=== PATIENT | female | born 1985 | race Caucasian/White ===

== ENCOUNTER 2020-06-21 15:18 | Inpatient (IN) | payer BC ==
[2020-06-21] MEDS ORDERED: Ondansetron 4 MG/2 ML SDV IVPUSH PRN (16:29)
[2020-06-21] MEDS ORDERED: Tranexamic Acid 1,000 MG in Sodium Chloride 0.9% 100 ML IV PRN (16:29)
[2020-06-21] MEDS ORDERED: Sodium Chloride 0.9% 2.5 ML Syringe FLUSH PRN (16:29)
[2020-06-21] MEDS ORDERED: Misoprostol 25 MCG (1/4 of 100 MCG) Tab VAG PRN ×2 (16:29)
[2020-06-21] MEDS ORDERED: Carboprost Tromethamine 250 MCG/1 ML Amp IM PRN (16:29)
[2020-06-21] MEDS ORDERED: Sodium Chloride 0.9% 10 ML SDV IV PRN (16:29)
[2020-06-21] MEDS ORDERED: Methylergonovine 0.2 MG/1 ML Amp IM PRN (16:29)
[2020-06-21] MEDS ORDERED: Misoprostol 200 MCG Tab PO PRN (16:29)
[2020-06-21] MEDS ORDERED: Sodium Chloride 0.9% 10 ML Syringe FLUSH PRN (16:29)
[2020-06-21] MEDS ORDERED: Nalbuphine 10 MG/1 ML Vial IVPUSH PRN (16:29)
[2020-06-21] MEDS ORDERED: Butorphanol 1 MG/ML SDV IVPUSH PRN (16:29)
[2020-06-21] MEDS ORDERED: Lidocaine 1% 50 ML MDV INJECT PRN (16:29)
[2020-06-21] MEDS ORDERED: Terbutaline 1 MG/ML SDV SUBCUT PRN (16:29)
[2020-06-21] MEDS ORDERED: Water For Irrigation,Sterile 1,000 ML Container IRR PRN (16:29)
[2020-06-21] MEDS ORDERED: Oxytocin/0.9 % Sodium Chloride 30 UNIT/500 ML BAG IV SCH ×2 (16:30)
[2020-06-21 17:10] LABS: BLOOD UREA NITROGEN,BUN 3 mg/dL (7.0-18.0); CARBON DIOXIDE,CO2 25.4 mmol/L (21.0-32.0); CHLORIDE,CL 102 mmol/L (98-107); GLUCOSE RANDOM 93 mg/dL (74-106); POTASSIUM,K 3.1 mmol/L (3.5-5.1); SODIUM,NA 138 mmol/L (136-145)
[2020-06-21] MEDS: Lactated Ringers 1,000 ML IV SCH ×3 (17:23→21:15)
[2020-06-21] MEDS ORDERED: Bupivicaine/fentaNYL/NS 250 ML ONE (21:18)
--- NOTE | 2020-06-21 21:34 | PCM.PREANE ---
Preanesthetic Assessment - Anesthesia/Transfusion/Family Hx Anesthesia History: Prior Anesthesia Without Reaction Family History of Anesthesia Reaction: No Transfusion History: No Prior Transfusion(s) - Review of Systems General: No Symptoms Pulmonary: No Symptoms Cardiovascular: No Symptoms Gastrointestinal: No Symptoms Neurological: No Symptoms Other: Reports: None - Physical Assessment NPO Status Date: 06/21/20 NPO Status Time: 11:00 Height: 5 ft 3 in Weight: 166 lb 9.6 oz Mental Status: Alert & Oriented x3 Airway Class: Mallampati = 2 Dentition: Reports: Normal Dentition Thyro-Mental Finger Breadths: 6 Mouth Opening Finger Breadths: 3 ROM/Head Extension: Full Lungs: Clear to Auscultation, Normal Respiratory Effort Cardiovascular: Regular Rate, Regular Rhythm - Lab Values: Laboratory Last Values WBC 9.67 K/uL (4.0-11.0) 06/21/20 16:10 RBC 3.80 M/uL (4.30-5.90) L 06/21/20 16:10 Hgb 11.5 g/dL (12.0-16.0) L 06/21/20 16:10 Hct 34.3 % (36.0-46.0) L 06/21/20 16:10 MCV 90.3 fL (80.0-98.0) 06/21/20 16:10 MCH 30.3 pg (27.0-32.0) 06/21/20 16:10 MCHC 33.5 g/dL (31.0-37.0) 06/21/20 16:10 RDW Std Deviation 46.4 fl (28.0-62.0) 06/21/20 16:10 RDW Coeff of Anuj 14 % (11.0-15.0) 06/21/20 16:10 Plt Count 238 K/uL (150-400) 06/21/20 16:10 MPV 11.20 fL (7.40-12.00) 06/21/20 16:10 Nucleated RBC % 0.0 /100WBC 06/21/20 16:10 Nucleated RBCs # 0 K/uL 06/21/20 16:10 Sodium 138 mmol/L (136-145) 06/21/20 16:10 Potassium 3.1 mmol/L (3.5-5.1) L 06/21/20 16:10 Chloride 102 mmol/L (98-107) 06/21/20 16:10 Carbon Dioxide 25.4 mmol/L (21.0-32.0) 06/21/20 16:10 BUN 3 mg/dL (7.0-18.0) L 06/21/20 16:10 Creatinine 0.7 mg/dL (0.6-1.0) 06/21/20 16:10 Est Cr Clr Drug Dosing TNP 06/21/20 16:10 Estimated GFR (MDRD) > 60.0 ml/min 06/21/20 16:10 Glucose 93 mg/dL (74-106) 06/21/20 16:10 Uric Acid 4.2 mg/dL (2.6-7.2) 06/21/20 16:10 Calcium 8.9 mg/dL (8.5-10.1) 06/21/20 16:10 Total Bilirubin 0.3 mg/dL (0.2-1.0) 06/21/20 16:10 AST 18 IU/L (15-37) 06/21/20 16:10 ALT 30 IU/L (14-63) 06/21/20 16:10 Alkaline Phosphatase 121 U/L (46-116) H 06/21/20 16:10 Total Protein 6.1 g/dL (6.4-8.2) L 06/21/20 16:10 Albumin 2.6 g/dL (3.4-5.0) L 06/21/20 16:10 Globulin 3.5 g/dL (2.6-4.0) 06/21/20 16:10 Albumin/Globulin Ratio 0.7 (0.9-1.6) L 06/21/20 16:10 SARS-CoV-2 RNA (ALINE) NEGATIVE (NEGATIVE) 06/21/20 16:15 Blood Type O POSITIVE 06/21/20 16:10 Antibody Screen NEGATIVE 06/21/20 16:10 - Allergies Allergies/Adverse Reactions: Allergies Allergy/AdvReac Type Severity Reaction Status Date / Time Latex, Natural Rubber Allergy Rash Verified 05/01/20 19:12 - Blood Blood Available: Yes - Anesthesia Plan Pre-Op Medication Ordered: None - Acknowledgements Anesthesia Type Planned: Epidural Pt an Appropriate Candidate for the Planned Anesthesia: Yes Alternatives and Risks of Anesthesia Discussed w Pt/Guardian: Yes Pt/Guardian Understands and Agrees with Anesthesia Plan: Yes PreAnesthesia Questionnaire Respiratory History: Reports: Asthma 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 OB/BYN History: History of infertility treatment Other Psychiatric History: "Have had depression/anxiety in past, none now" Oncologic (Cancer) History: Reports: Hodgkin's Lymphoma Dermatologic History: Reports: Eczema - Past Surgical History Head Surgeries/Procedures: Reports: None - SUBSTANCE USE Tobacco Use Status *Q: Never Tobacco User Tobacco Use Within Last Twelve Months: No Second Hand Smoke Exposure: No Recreational Drug Use History: No - HOME MEDS Home Medications: Home Meds Albuterol [Take Home: Albuterol 18 GM, 1 INH Pack] 1 puff PO Q4HR PRN 06/21/20 [History] Cetirizine HCl [Zyrtec] 10 mg PO DAILY PRN 06/21/20 [History] Fluticasone Propionate [Flovent HFA 110 MCG] 2 puff PO BID 06/21/20 [History] Ondansetron [Ondansetron ODT] 1 tab PO Q8HR 06/21/20 [History] - CURRENT (IN HOUSE) MEDS Current Meds: Current Medications Butorphanol Tartrate (Butorphanol 1 Mg/Ml Sdv) 1 mg IVPUSH Q1H PRN PRN Reason: Pain Carboprost Tromethamine (Carboprost Tromethamine 250 Mcg/1 Ml Amp) 250 mcg IM ASDIRECTED PRN PRN Reason: Post Hemorrhage Oxytocin/Sodium Chloride (Oxytocin 30 Unit/500 Ml-Ns) 30 unit in 500 mls @ 999 mls/hr IV TITRATE JUSTYN Tranexamic Acid 1,000 mg/ (Sodium Chloride) 110 mls @ 660 mls/hr IV ONETIME PRN PRN Reason: Bleeding Oxytocin/Sodium Chloride (Oxytocin 30 Unit/500 Ml-Ns) 30 unit in 500 mls @ 2 mls/hr IV TITRATE JUSTYN; Protocol Last Titration: 06/21/20 19:15 Dose: 8 munits/min, 8 mls/hr Documented by: Lactated Ringer's (Ringers, Lactated) 1,000 mls @ 150 mls/hr IV ASDIRECTED JUSTYN Last Admin: 06/21/20 21:15 Dose: 150 mls/hr Documented by: Lidocaine HCl (Lidocaine 1% 50 Ml Mdv) 50 ml INJECT ONETIME PRN PRN Reason: Laceration repair Methylergonovine Maleate (Methylergonovine 0.2 Mg/1 Ml Amp) 0.2 mg IM ASDIRECTED PRN PRN Reason: Post Hemorrhage Misoprostol (Misoprostol 200 Mcg Tab) 200 mcg PO ONETIME PRN PRN Reason: Post Hemorrhage Nalbuphine HCl (Nalbuphine 10 Mg/1 Ml Vial) 10 mg IVPUSH Q1H PRN PRN Reason: Pain (severe 7-10) Ondansetron HCl (Ondansetron 4 Mg/2 Ml Sdv) 4 mg IVPUSH Q6H PRN PRN Reason: Nausea/Vomiting Sodium Chloride (Sodium Chloride 0.9% 10 Ml Syringe) 10 ml FLUSH ASDIRECTED PRN PRN Reason: Keep Vein Open Sodium Chloride (Sodium Chloride 0.9% 2.5 Ml Syringe) 2.5 ml FLUSH ASDIRECTED PRN PRN Reason: Keep Vein Open Sodium Chloride (Sodium Chloride 0.9% 10 Ml Sdv) 10 ml IV ASDIRECTED PRN PRN Reason: IV Use Sterile Water (Water For Irrigation,Sterile 1,000 Ml Container) 1,000 ml IRR ASDIRECTED PRN PRN Reason: delivery Terbutaline Sulfate (Terbutaline 1 Mg/Ml Sdv) 0.25 mg SUBCUT ASDIRECTED PRN PRN Reason: Tacysystole Discontinued Medications Fentanyl/Bupivacaine HCl (Fentanyl/Bupivacaine/Ns 2 Mcg-0.125% 250 Ml) Confirm Administered Dose 250 mls @ as directed .ROUTE .[facility] ONE Stop: 06/21/20 21:19
--- NOTE | 2020-06-21 21:36 | PCM48HPAN ---
Post Anesthesia Note - EVALUATION WITHIN 48HRS OF ANESTHETIC Vital Signs in Normal Range: Yes Patient Participated in Evaluation: Yes Respiratory Function Stable: Yes Airway Patent: Yes Cardiovascular Function Stable: Yes Hydration Status Stable: Yes Pain Control Satisfactory: Yes Nausea and Vomiting Control Satisfactory: Yes Mental Status Recovered: Yes
[2020-06-22] MEDS: Lactated Ringers 1,000 ML IV SCH ×4 (04:00→23:50)
[2020-06-22] MEDS ORDERED: fentaNYL 100 MCG/2 ML SDV ONE ×2 (12:29→20:04)
[2020-06-22] MEDS ORDERED: Ropivacaine HCl/PF 100 ML ONE ×2 (12:30→20:04)
[2020-06-22] MEDS ORDERED: Bupivacaine 0.25% 10 ML SDV ONE (12:32)
[2020-06-23] MEDS ORDERED: oxyCODONE 5 MG Tab PO PRN (00:38)
[2020-06-23] MEDS ORDERED: Benzocaine/Menthol 20%-0.5% Spray 78 GM Cannister TOP PRN (00:38)
[2020-06-23] MEDS ORDERED: Acetaminophen 500 MG Tab PO PRN (00:38)
[2020-06-23] MEDS ORDERED: Bisacodyl 10 MG Supp RECTAL PRN (00:38)
[2020-06-23] MEDS ORDERED: Lanolin 100% Cream 7 GM Tube TOP PRN (00:38)
[2020-06-23] MEDS ORDERED: Witch Hazel Medicated Pads 40/Jar TOP PRN (00:38)
[2020-06-23] MEDS ORDERED: Ibuprofen 400 MG Tab PO PRN (00:38)
[2020-06-23] MEDS ORDERED: Docusate Sodium 100 MG Cap PO PRN (00:38)
--- NOTE | 2020-06-23 00:46 | PCM.DEL ---
L & D Note - General Info Date of Service: 06/23/20 - Delivery Note Labor: Augmented by Oxytocin Delivery Outcome: Livebirth Delivery Method: Spontaneous Vaginal Delivery-Single Presentation: Left Occiput Anterior (HECTOR) Nuchal Cord: None Anesthesia Type: Epidural Anesthetic: Lidocaine (Xylocaine) 1% Plain Local Anesthetic Volume: 3cc Amniotic Fluid Description: Clear Episiotomy Type: Right Mediolateral Laceration: 2nd Degree Suture type: Vicryl, Other Suture size: 2-0 Placenta: Intact Cord: 3 Vessels Estimated Blood Loss: 300 Score 1 min: 3 Score 5 min: 7 Second Stage Interventions: Reports: Pushing Effectively Delivery Comments (Free Text/Narrative):: Live female delivered at 2340 , 3 and 7 Weight 3510g - General Info Date of Service: 06/23/20 - Patient Data Weight - Most Recent: 75.568 kg Med Orders - Current: Current Medications Butorphanol Tartrate (Butorphanol 1 Mg/Ml Sdv) 1 mg IVPUSH Q1H PRN PRN Reason: Pain Carboprost Tromethamine (Carboprost Tromethamine 250 Mcg/1 Ml Amp) 250 mcg IM ASDIRECTED PRN PRN Reason: Post Hemorrhage Oxytocin/Sodium Chloride (Oxytocin 30 Unit/500 Ml-Ns) 30 unit in 500 mls @ 999 mls/hr IV TITRATE JUSTYN Last Admin: 06/23/20 00:00 Dose: 500 mls/hr Documented by: Tranexamic Acid 1,000 mg/ (Sodium Chloride) 110 mls @ 660 mls/hr IV ONETIME PRN PRN Reason: Bleeding Oxytocin/Sodium Chloride (Oxytocin 30 Unit/500 Ml-Ns) 30 unit in 500 mls @ 2 mls/hr IV TITRATE [facility]; Protocol Last Titration: 06/22/20 23:42 Dose: 500 munits/min, 500 mls/hr Documented by: Lactated Ringer's (Ringers, Lactated) 1,000 mls @ 150 mls/hr IV ASDIRECTED JUSTYN Last Admin: 06/22/20 23:50 Dose: 150 mls/hr Documented by: Lidocaine HCl (Lidocaine 1% 50 Ml Mdv) 50 ml INJECT ONETIME PRN PRN Reason: Laceration repair Last Admin: 06/22/20 23:50 Dose: 50 ml Documented by: Methylergonovine Maleate (Methylergonovine 0.2 Mg/1 Ml Amp) 0.2 mg IM ASDIRECTED PRN PRN Reason: Post Hemorrhage Misoprostol (Misoprostol 200 Mcg Tab) 200 mcg PO ONETIME PRN PRN Reason: Post Hemorrhage Nalbuphine HCl (Nalbuphine 10 Mg/1 Ml Vial) 10 mg IVPUSH Q1H PRN PRN Reason: Pain (severe 7-10) Ondansetron HCl (Ondansetron 4 Mg/2 Ml Sdv) 4 mg IVPUSH Q6H PRN PRN Reason: Nausea/Vomiting Sodium Chloride (Sodium Chloride 0.9% 10 Ml Syringe) 10 ml FLUSH ASDIRECTED PRN PRN Reason: Keep Vein Open Sodium Chloride (Sodium Chloride 0.9% 2.5 Ml Syringe) 2.5 ml FLUSH ASDIRECTED PRN PRN Reason: Keep Vein Open Sodium Chloride (Sodium Chloride 0.9% 10 Ml Sdv) 10 ml IV ASDIRECTED PRN PRN Reason: IV Use Sterile Water (Water For Irrigation,Sterile 1,000 Ml Container) 1,000 ml IRR ASDIRECTED PRN PRN Reason: delivery Terbutaline Sulfate (Terbutaline 1 Mg/Ml Sdv) 0.25 mg SUBCUT ASDIRECTED PRN PRN Reason: Tacysystole Discontinued Medications Bupivacaine HCl (Bupivacaine 0.25% 10 Ml Sdv) Confirm Administered Dose 10 ml .ROUTE .[facility] ONE Stop: 06/22/20 12:33 Fentanyl (Fentanyl 100 Mcg/2 Ml Sdv) Confirm Administered Dose 100 mcg .ROUTE .[facility] ONE Stop: 06/22/20 12:30 Fentanyl (Fentanyl 100 Mcg/2 Ml Sdv) Confirm Administered Dose 100 mcg .ROUTE .[facility] ONE Stop: 06/22/20 20:05 Fentanyl/Bupivacaine HCl (Fentanyl/Bupivacaine/Ns 2 Mcg-0.125% 250 Ml) Confirm Administered Dose 250 mls @ as directed .ROUTE .[facility] ONE Stop: 06/21/20 21:19 Ropivacaine (Naropin 0.2%) Confirm Administered Dose 100 mls @ as directed .ROUTE .[facility] ONE Stop: 06/22/20 12:31 Ropivacaine (Naropin 0.2%) Confirm Administered Dose 100 mls @ as directed .ROUTE .[facility] ONE Stop: 06/22/20 20:05 - Problem List & Annotations (1) Vaginal delivery SNOMED Code(s): 176202541 Code(s): O80 - ENCOUNTER FOR FULL-TERM UNCOMPLICATED DELIVERY Status: Acute Current Visit: Yes - Problem List Review Problem List Initiated/Reviewed/Updated: No - My Orders Last 24 Hours: My Active Orders 06/23/20 00:38 Patient Status [ADT] Routine May Shower [RC] ASDIRECTED Up ad Tigist [RC] ASDIRECTED Vital Signs [RC] PER UNIT ROUTINE BLOOD GAS ARTERIAL UMBILICAL [BG] Stat Acetaminophen [Tylenol Extra Strength] 1,000 mg PO Q4H PRN Acetaminophen [Tylenol Extra Strength] 500 mg PO Q4H PRN Benzocaine/Menthol [Dermoplast Pain Relief 20%-0.5% [place]] 78 gm TOP ASDIRECTED PRN Docusate Sodium [Colace] 100 mg PO BID PRN Ibuprofen [Motrin] 400 mg PO Q4H PRN Ibuprofen [Motrin] 800 mg PO Q6H PRN Lanolin [Lansinoh HPA] See Dose Instructions TOP ASDIRECTED PRN bisacodyL [Dulcolax] 10 mg RECTAL ONETIME PRN oxyCODONE 5 mg PO Q2H PRN witch Ran [Tucks] 1 pad TOP ASDIRECTED PRN Assess Lochia [WOMSER] Per Unit Routine Assess Uterine Involution [WOMSER] Per Unit Routine Peripheral IV Discontinue [OM.PC] Routine Resuscitation Status Routine 06/24/20 05:11 HEMOGLOBIN/HEMATOCRIT,HH [HEME] Timed - Assessment Assessment:: 35yo yo @ 38w6d s/p PPD0 , GHTN Rubella Immune
[2020-06-23] MEDS: Ibuprofen 800 MG Tab PO PRN ×3 (03:31→22:36)
--- NOTE | 2020-06-23 07:27 | PCM.POSTAN ---
POST ANESTHESIA ASSESSMENT - MENTAL STATUS Mental Status: Alert, Oriented - RESPIRATORY Respiratory Status: Respiratory Rate WNL, Airway Patent, O2 Saturation Stable - CARDIOVASCULAR CV Status: Pulse Rate WNL, Blood Pressure Stable - GASTROINTESTINAL GI Status: No Symptoms - POST OP HYDRATION Hydration Status: Adequate & Stable
--- NOTE | 2020-06-23 08:37 | PCM.PNPP ---
- General Info Date of Service: 06/23/20 Subjective Update: Patient doing well. Minimal cramping and lochia. Denies preeclampsia symptoms, but has noticed an increase in ankle swelling. Functional Status: Reports: Pain Controlled, Tolerating Diet, Ambulating, Urinating - Review of Systems General: Reports: No Symptoms HEENT: Reports: No Symptoms Pulmonary: Reports: No Symptoms Cardiovascular: Reports: No Symptoms Gastrointestinal: Reports: No Symptoms Genitourinary: Reports: No Symptoms Musculoskeletal: Reports: No Symptoms Skin: Reports: No Symptoms Neurological: Reports: No Symptoms Psychiatric: Reports: No Symptoms - Patient Data Vital Signs - Most Recent: Last Vital Signs Temp 36.5 C 06/23/20 07:59 Pulse 98 06/23/20 07:59 Resp 18 06/23/20 07:59 BP 135/94 H 06/23/20 07:59 Pulse Ox 95 06/23/20 07:59 Weight - Most Recent: 75.568 kg Lab Results - Last 24 Hours: Laboratory Results - last 24 hr 06/22/20 Range/Units 23:40 Cord ABG pH 7.192 (7.18-7.38) Cord ABG Base Excess -10 (-10--2) Med Orders - Current: Current Medications Acetaminophen (Acetaminophen 500 Mg Tab) 500 mg PO Q4H PRN PRN Reason: Pain Acetaminophen (Acetaminophen 500 Mg Tab) 1,000 mg PO Q4H PRN PRN Reason: Pain Benzocaine/Menthol (Benzocaine/Menthol 20%-0.5% [place] 78 Gm Cannister) 78 gm TOP ASDIRECTED PRN PRN Reason: Perineal Comfort Measure Last Admin: 06/23/20 03:30 Dose: 78 gm Documented by: Bisacodyl (Bisacodyl 10 Mg Supp) 10 mg RECTAL ONETIME PRN PRN Reason: Constipation Butorphanol Tartrate (Butorphanol 1 Mg/Ml Sdv) 1 mg IVPUSH Q1H PRN PRN Reason: Pain Carboprost Tromethamine (Carboprost Tromethamine 250 Mcg/1 Ml Amp) 250 mcg IM ASDIRECTED PRN PRN Reason: Post Hemorrhage Docusate Sodium (Docusate Sodium 100 Mg Cap) 100 mg PO BID PRN PRN Reason: Constipation Emollient Ointment (Lanolin 100% Cream 7 Gm Tube) 0 gm TOP ASDIRECTED PRN PRN Reason: Sore Nipples Last Admin: 06/23/20 03:30 Dose: 7 gm Documented by: Oxytocin/Sodium Chloride (Oxytocin 30 Unit/500 Ml-Ns) 30 unit in 500 mls @ 999 mls/hr IV TITRATE JUSTYN Last Admin: 06/23/20 00:00 Dose: 500 mls/hr Documented by: Tranexamic Acid 1,000 mg/ (Sodium Chloride) 110 mls @ 660 mls/hr IV ONETIME PRN PRN Reason: Bleeding Oxytocin/Sodium Chloride (Oxytocin 30 Unit/500 Ml-Ns) 30 unit in 500 mls @ 2 mls/hr IV TITRATE JUSTYN; Protocol Last Titration: 06/22/20 23:42 Dose: 500 munits/min, 500 mls/hr Documented by: Lactated Ringer's (Ringers, Lactated) 1,000 mls @ 150 mls/hr IV ASDIRECTED JUSTYN Last Admin: 06/22/20 23:50 Dose: 150 mls/hr Documented by: Ibuprofen (Ibuprofen 400 Mg Tab) 400 mg PO Q4H PRN PRN Reason: Pain Ibuprofen (Ibuprofen 800 Mg Tab) 800 mg PO Q6H PRN PRN Reason: Pain Last Admin: 06/23/20 03:31 Dose: 800 mg Documented by: Lidocaine HCl (Lidocaine 1% 50 Ml Mdv) 50 ml INJECT ONETIME PRN PRN Reason: Laceration repair Last Admin: 06/22/20 23:50 Dose: 50 ml Documented by: Methylergonovine Maleate (Methylergonovine 0.2 Mg/1 Ml Amp) 0.2 mg IM ASDIRECTED PRN PRN Reason: Post Hemorrhage Misoprostol (Misoprostol 200 Mcg Tab) 200 mcg PO ONETIME PRN PRN Reason: Post Hemorrhage Nalbuphine HCl (Nalbuphine 10 Mg/1 Ml Vial) 10 mg IVPUSH Q1H PRN PRN Reason: Pain (severe 7-10) Ondansetron HCl (Ondansetron 4 Mg/2 Ml Sdv) 4 mg IVPUSH Q6H PRN PRN Reason: Nausea/Vomiting Oxycodone HCl (Oxycodone 5 Mg Tab) 5 mg PO Q2H PRN PRN Reason: Pain Sodium Chloride (Sodium Chloride 0.9% 10 Ml Syringe) 10 ml FLUSH ASDIRECTED PRN PRN Reason: Keep Vein Open Sodium Chloride (Sodium Chloride 0.9% 2.5 Ml Syringe) 2.5 ml FLUSH ASDIRECTED PRN PRN Reason: Keep Vein Open Sodium Chloride (Sodium Chloride 0.9% 10 Ml Sdv) 10 ml IV ASDIRECTED PRN PRN Reason: IV Use Sterile Water (Water For Irrigation,Sterile 1,000 Ml Container) 1,000 ml IRR ASDIRECTED PRN PRN Reason: delivery Terbutaline Sulfate (Terbutaline 1 Mg/Ml Sdv) 0.25 mg SUBCUT ASDIRECTED PRN PRN Reason: Tacysystole Witch Leonarda (Witch Leonarad Medicated Pads 40/Jar) 1 pad TOP ASDIRECTED PRN PRN Reason: comfort care Last Admin: 06/23/20 03:31 Dose: 1 pad Documented by: Discontinued Medications Bupivacaine HCl (Bupivacaine 0.25% 10 Ml Sdv) Confirm Administered Dose 10 ml .ROUTE .[facility] ONE Stop: 06/22/20 12:33 Fentanyl (Fentanyl 100 Mcg/2 Ml Sdv) Confirm Administered Dose 100 mcg .ROUTE .[facility] ONE Stop: 06/22/20 12:30 Fentanyl (Fentanyl 100 Mcg/2 Ml Sdv) Confirm Administered Dose 100 mcg .ROUTE .[facility] ONE Stop: 06/22/20 20:05 Fentanyl/Bupivacaine HCl (Fentanyl/Bupivacaine/Ns 2 Mcg-0.125% 250 Ml) Confirm Administered Dose 250 mls @ as directed .ROUTE .[facility] ONE Stop: 06/21/20 21:19 Ropivacaine (Naropin 0.2%) Confirm Administered Dose 100 mls @ as directed .ROUTE .[facility] ONE Stop: 06/22/20 12:31 Ropivacaine (Naropin 0.2%) Confirm Administered Dose 100 mls @ as directed .ROUTE .[facility] ONE Stop: 06/22/20 20:05 - Infant Interaction Infant Disposition, : in Room with Family Infant Interaction: Holding Feeding: Breastfed Infant; Nursed Well Support Person: - Recovery Exam Fundal Level: 1 Fingerbreadths Below Umbilicus Fundal Placement: Midline Lochia Amount: Small Lochia Color: Rubra/Red Bladder Status: Voiding Urinary Elimination: Voided - Exam General: Alert, Oriented Neck: Supple Lungs: Normal Respiratory Effort GI/Abdominal Exam: Soft, Non-Tender, No Distention Extremities: Pedal Edema (1+) Skin: Warm, Dry, Intact Neurological: No New Focal Deficit Psy/Mental Status: Alert, Normal Affect, Normal Mood - Problem List & Annotations (1) Gestational hypertension SNOMED Code(s): 234262753 Code(s): O13.9 - GESTATIONAL HTN W/O SIGNIFICANT PROTEINURIA, UNSP TRIMESTER Status: Acute Current Visit: Yes (2) Vaginal delivery SNOMED Code(s): 966481565 Code(s): O80 - ENCOUNTER FOR FULL-TERM UNCOMPLICATED DELIVERY Status: Acute Current Visit: Yes - Problem List Review Problem List Initiated/Reviewed/Updated: Yes - Assessment Assessment:: 35yo yo @ 38w6d s/p , PPD1 - Plan Plan:: 1. : Routine care. Discussed fluid shifts after delivery, encouraged hydration today and elevating legs when in bed. 2. GHTN: Monitor BP . Has 1 week BP check scheduled in clinic. 3. Dispo: Stay today to monitor BP. Likely discharge home tomorrow.
--- NOTE | 2020-06-23 11:03 | OR ---
SURGEON: SNOW BUI DATE OF PROCEDURE: 06/23/2020 PREOPERATIVE DIAGNOSIS: A 35-year-old G1, P0, at 38 weeks 6 days, admitted for induction of labor secondary to gestational hypertension. POSTOPERATIVE DIAGNOSIS: A 35-year-old G1, P0, at 38 weeks 6 days, admitted for induction of labor secondary to gestational hypertension. PROCEDURES: Normal spontaneous vaginal delivery and repair of right mediolateral episiotomy ESTIMATED BLOOD LOSS: 300. INTRAVENOUS FLUID: Pitocin running. ANESTHESIA: Epidural in addition to 1% lidocaine for repair of right mediolateral episiotomy. NOTES AND FINDINGS: A live female delivered at 2340. score is 3 and 7. Weight is 3510 g. There was right mediolateral episiotomy that was repaired in layers. BRIEF HISTORY ABOUT THE PATIENT: She is a 35-year-old G1, P0, at 38 weeks 6 days, who was admitted for induction of labor secondary to gestational hypertension. I took over care from Dr. Salinas. When she was admitted, she was about 2 cm dilated. She received Pitocin for about 12 hours and she was unchanged, so Pitocin was halted and restarted again. I evaluated the patient in the morning. She was about 3 cm dilated. AROM was done. Clear fluid was noted. IUPC was placed in to monitor contractions. At this point, Pitocin was about 12 milliunits. Tracing was category 1. monitoring was noted to be normal, was category 1. The blood pressure was normal. The patient then made progress and was re-evaluated again about 4 hours later, she was about 6 to 7 cm. Then, the patient became fully dilated thereafter. With the patient being fully dilated, she was encouraged to push. Initially, head was in OP position self rotated to OA during pushing movement. Once the patient was fully dilated, she pushed, and with good pushing effort, she delivered the head followed subsequently by the anterior and posterior shoulder. The was placed on maternal abdomen, but due to tone, cord was immediately cut and clamped and handed over to the awaiting nursery nurse. The placenta was then attempted to be delivered, was delivered via manual massage of the uterine fundus via controlled cord traction. The cord blood gases were obtained after about 15 minutes due to assisting with resuscitation of the baby. The perineum was inspected. The RML was noted and was repaired in layers with 0 Vicryl. The patient tolerated the procedure well. All instrument and pad counts were correct x2. LEVY / JOSE G /[id number] MTDD
--- NOTE | 2020-06-23 14:19 | PCM.SN.2 ---
- Free Text/Narrative Note: Clarification of epidural Placement time spent. Epidural preparation and placement from 2104 to 2204 on 06/21/2020. Please see anesthesia record for description.
[2020-06-23] MEDS: Acetaminophen 500 MG Tab PO PRN (15:20)
[2020-06-24] MEDS: Acetaminophen 500 MG Tab PO PRN (07:52)
--- NOTE | 2020-06-24 08:18 | PCM.PNPP ---
- General Info Date of Service: 06/24/20 Subjective Update: Patient doing well. Denies preeclampsia symptoms. Minimal lochia and cramping. Working on . Functional Status: Reports: Pain Controlled, Tolerating Diet, Ambulating, Urinating - Review of Systems General: Reports: No Symptoms HEENT: Reports: No Symptoms Pulmonary: Reports: No Symptoms Cardiovascular: Reports: No Symptoms Gastrointestinal: Reports: No Symptoms Genitourinary: Reports: No Symptoms Musculoskeletal: Reports: No Symptoms Skin: Reports: No Symptoms Neurological: Reports: No Symptoms Psychiatric: Reports: No Symptoms - Patient Data Vital Signs - Most Recent: Last Vital Signs Temp 36.3 C 06/23/20 19:38 Pulse 88 06/23/20 19:38 Resp 18 06/23/20 19:38 BP 140/84 06/23/20 19:38 Pulse Ox 98 06/23/20 19:38 Weight - Most Recent: 75.568 kg Lab Results - Last 24 Hours: Laboratory Results - last 24 hr 06/24/20 Range/Units 05:32 Hgb 9.6 L (12.0-16.0) g/dL Hct 29.3 L (36.0-46.0) % Med Orders - Current: Current Medications Acetaminophen (Acetaminophen 500 Mg Tab) 500 mg PO Q4H PRN PRN Reason: Pain Acetaminophen (Acetaminophen 500 Mg Tab) 1,000 mg PO Q4H PRN PRN Reason: Pain Last Admin: 06/24/20 07:52 Dose: 1,000 mg Documented by: Benzocaine/Menthol (Benzocaine/Menthol 20%-0.5% [place] 78 Gm Cannister) 78 gm TOP ASDIRECTED PRN PRN Reason: Perineal Comfort Measure Last Admin: 06/23/20 03:30 Dose: 78 gm Documented by: Bisacodyl (Bisacodyl 10 Mg Supp) 10 mg RECTAL ONETIME PRN PRN Reason: Constipation Butorphanol Tartrate (Butorphanol 1 Mg/Ml Sdv) 1 mg IVPUSH Q1H PRN PRN Reason: Pain Carboprost Tromethamine (Carboprost Tromethamine 250 Mcg/1 Ml Amp) 250 mcg IM ASDIRECTED PRN PRN Reason: Post Hemorrhage Docusate Sodium (Docusate Sodium 100 Mg Cap) 100 mg PO BID PRN PRN Reason: Constipation Emollient Ointment (Lanolin 100% Cream 7 Gm Tube) 0 gm TOP ASDIRECTED PRN PRN Reason: Sore Nipples Last Admin: 06/23/20 03:30 Dose: 7 gm Documented by: Oxytocin/Sodium Chloride (Oxytocin 30 Unit/500 Ml-Ns) 30 unit in 500 mls @ 999 mls/hr IV TITRATE JUSTYN Last Admin: 06/23/20 00:00 Dose: 500 mls/hr Documented by: Tranexamic Acid 1,000 mg/ (Sodium Chloride) 110 mls @ 660 mls/hr IV ONETIME PRN PRN Reason: Bleeding Oxytocin/Sodium Chloride (Oxytocin 30 Unit/500 Ml-Ns) 30 unit in 500 mls @ 2 mls/hr IV TITRATE [facility]; Protocol Last Titration: 06/22/20 23:42 Dose: 500 munits/min, 500 mls/hr Documented by: Lactated Ringer's (Ringers, Lactated) 1,000 mls @ 150 mls/hr IV ASDIRECTED [facility] Last Admin: 06/22/20 23:50 Dose: 150 mls/hr Documented by: Ibuprofen (Ibuprofen 400 Mg Tab) 400 mg PO Q4H PRN PRN Reason: Pain Ibuprofen (Ibuprofen 800 Mg Tab) 800 mg PO Q6H PRN PRN Reason: Pain Last Admin: 06/23/20 22:36 Dose: 800 mg Documented by: Lidocaine HCl (Lidocaine 1% 50 Ml Mdv) 50 ml INJECT ONETIME PRN PRN Reason: Laceration repair Last Admin: 06/22/20 23:50 Dose: 50 ml Documented by: Methylergonovine Maleate (Methylergonovine 0.2 Mg/1 Ml Amp) 0.2 mg IM ASDIRECTED PRN PRN Reason: Post Hemorrhage Misoprostol (Misoprostol 200 Mcg Tab) 200 mcg PO ONETIME PRN PRN Reason: Post Hemorrhage Nalbuphine HCl (Nalbuphine 10 Mg/1 Ml Vial) 10 mg IVPUSH Q1H PRN PRN Reason: Pain (severe 7-10) Ondansetron HCl (Ondansetron 4 Mg/2 Ml Sdv) 4 mg IVPUSH Q6H PRN PRN Reason: Nausea/Vomiting Oxycodone HCl (Oxycodone 5 Mg Tab) 5 mg PO Q2H PRN PRN Reason: Pain Sodium Chloride (Sodium Chloride 0.9% 10 Ml Syringe) 10 ml FLUSH ASDIRECTED PRN PRN Reason: Keep Vein Open Sodium Chloride (Sodium Chloride 0.9% 2.5 Ml Syringe) 2.5 ml FLUSH ASDIRECTED PRN PRN Reason: Keep Vein Open Sodium Chloride (Sodium Chloride 0.9% 10 Ml Sdv) 10 ml IV ASDIRECTED PRN PRN Reason: IV Use Sterile Water (Water For Irrigation,Sterile 1,000 Ml Container) 1,000 ml IRR ASDIRECTED PRN PRN Reason: delivery Terbutaline Sulfate (Terbutaline 1 Mg/Ml Sdv) 0.25 mg SUBCUT ASDIRECTED PRN PRN Reason: Tacysystole Witch Leonarda (Witch Leonarda Medicated Pads 40/Jar) 1 pad TOP ASDIRECTED PRN PRN Reason: comfort care Last Admin: 06/23/20 03:31 Dose: 1 pad Documented by: Discontinued Medications Bupivacaine HCl (Bupivacaine 0.25% 10 Ml Sdv) Confirm Administered Dose 10 ml .ROUTE .[facility]-MED ONE Stop: 06/22/20 12:33 Last Admin: 06/23/20 22:40 Dose: Not Given Documented by: Fentanyl (Fentanyl 100 Mcg/2 Ml Sdv) Confirm Administered Dose 100 mcg .ROUTE .[employer]MED ONE Stop: 06/22/20 12:30 Last Admin: 06/23/20 22:41 Dose: Not Given Documented by: Fentanyl (Fentanyl 100 Mcg/2 Ml Sdv) Confirm Administered Dose 100 mcg .ROUTE .[employer]MED ONE Stop: 06/22/20 20:05 Last Admin: 06/23/20 22:40 Dose: Not Given Documented by: Fentanyl/Bupivacaine HCl (Fentanyl/Bupivacaine/Ns 2 Mcg-0.125% 250 Ml) Confirm Administered Dose 250 mls @ as directed .ROUTE .[employer]-MED ONE Stop: 06/21/20 21:19 Ropivacaine (Naropin 0.2%) Confirm Administered Dose 100 mls @ as directed .ROUTE .[employer]MED ONE Stop: 06/22/20 12:31 Last Admin: 06/23/20 22:40 Dose: Not Given Documented by: Ropivacaine (Naropin 0.2%) Confirm Administered Dose 100 mls @ as directed .ROUTE .[employer]MED ONE Stop: 06/22/20 20:05 Last Admin: 06/23/20 22:40 Dose: Not Given Documented by: - Interaction Disposition, : [place] in Room with Family Feeding: Attempted ; Nursed Fair/Poor, Continues to Breastfeed Support Person: - Recovery Exam Fundal Tone: Firm Fundal Level: At Umbilicus Fundal Placement: Midline Lochia Amount: Scant Lochia Color: Rubra/Red Bladder Status: Voiding Urinary Elimination: Voided - Exam General: Alert, Oriented Neck: Supple Lungs: Normal Respiratory Effort GI/Abdominal Exam: Soft, Non-Tender, No Distention Extremities: Non-Tender, Pedal Edema (1+) Skin: Warm, Dry, Intact Neurological: No New Focal Deficit Psy/Mental Status: Alert, Normal Affect, Normal Mood - Problem List & Annotations (1) Gestational hypertension SNOMED Code(s): 753342303 Code(s): O13.9 - GESTATIONAL HTN W/O SIGNIFICANT PROTEINURIA, UNSP TRIMESTER Status: Acute Current Visit: Yes (2) Vaginal delivery SNOMED Code(s): 961619851 Code(s): O80 - ENCOUNTER FOR FULL-TERM UNCOMPLICATED DELIVERY Status: Acute Current Visit: Yes - Problem List Review Problem List Initiated/Reviewed/Updated: Yes - My Orders Last 24 Hours: My Active Orders 06/24/20 08:10 Ready for Discharge [RC] PER UNIT ROUTINE - Assessment Assessment:: 35yo yo @ 38w6d s/p , PPD2 - Plan Plan:: 1. : Routine care. Discussed fluid shifts after delivery, encouraged hydration today and elevating legs when in bed. 2. GHTN: Continue to monitor BP, mild range since delivery. Has 1 week BP check scheduled in clinic. 3. Dispo: Discharge home today. BP check in clinic in 1 week. Reviewed and preeclampsia precautions. All questions answered.
--- NOTE | 2020-06-24 13:34 | PCM48HPAN ---
Post Anesthesia Note - EVALUATION WITHIN 48HRS OF ANESTHETIC Patient Participated in Evaluation: Yes Respiratory Function Stable: Yes Airway Patent: Yes Cardiovascular Function Stable: Yes Hydration Status Stable: Yes Pain Control Satisfactory: Yes Nausea and Vomiting Control Satisfactory: Yes Mental Status Recovered: Yes Vital Signs: Last Vital Signs Temp 98.2 F 06/24/20 12:06 Pulse 87 06/24/20 12:06 Resp 16 06/24/20 12:06 BP 135/89 06/24/20 12:06 Pulse Ox 98 06/24/20 12:06 - COMMENTS/OBSERVATIONS Free Text/Narrative:: LE worked well. Full return of sensation and motor
[2020-06-24] MEDS: Ibuprofen 800 MG Tab PO PRN (15:44)
== END 2020-06-24 18:12 | disposition home or self-care (01) | DRG 560 ==
LOC: MW.OBCHECK 15:18 → MW.OB 16:30 → OBSVTOIN 06-23 00:38 → MW.OB 06-23 06:01
PROVIDERS: ADMIT Obstetrics & Gynecology; ATTEND Obstetrics & Gynecology
PROC: 10E0XZZ Delivery of Products of Conception, External Approach (ICD-10-PCS; principal; 2020-06-23)
PROC: 3E0R3BZ Introduction of Anesthetic Agent into Spinal Canal, Percutaneous Approach (ICD-10-PCS; 2020-06-23)
PROC: 10907ZC Drainage of Amniotic Fluid, Therapeutic from Products of Conception, Via Natural or Artificial Opening (ICD-10-PCS; 2020-06-23)
PROC: 0W8NXZZ Division of Female Perineum, External Approach (ICD-10-PCS; 2020-06-23)
PROC: 4A1HXCZ Monitoring of Products of Conception, Cardiac Rate, External Approach (ICD-10-PCS; 2020-06-23)
PROC: 10H07YZ Insertion of Other Device into Products of Conception, Via Natural or Artificial Opening (ICD-10-PCS; 2020-06-23)
DX: O13.4 Gestational [pregnancy-induced] hypertension without significant proteinuria, complicating childbirth (principal); Z3A.38 38 weeks gestation of pregnancy; Z37.0 Single live birth; O76 Abnormality in fetal heart rate and rhythm complicating labor and delivery; Z20.822 Contact with and (suspected) exposure to COVID-19
CPT/HCPCS: 36415; 51702; 59025; 59409; 80053; 82803; 84550; 85014; 85018; 85027; 86592; 86850; 86900; 86901; A9270-GY; J2001; J2590; J2795; J3010; J3490; J7120; U0002

== ENCOUNTER 2020-06-30 14:52 | Inpatient (IN) | payer BC ==
[2020-06-30] MEDS ORDERED: Sodium Chloride 0.9% 10 ML SDV IV PRN (15:13)
[2020-06-30] MEDS ORDERED: Sodium Chloride 0.9% 10 ML Syringe FLUSH PRN (15:13)
[2020-06-30] MEDS ORDERED: Magnesium Sulfate/Water 4 GM in Premix Bag 1 BAG IV ONE (15:13)
[2020-06-30] MEDS ORDERED: Sodium Chloride 0.9% 2.5 ML Syringe FLUSH PRN (15:13)
[2020-06-30] MEDS ORDERED: Calcium Gluconate 10% 1 GM/10 ML SDV IV PRN (15:13)
[2020-06-30] MEDS ORDERED: NIFEdipine 30 MG Tab.ER PO ONE (15:50)
[2020-06-30] MEDS ORDERED: Lactated Ringers 1,000 ML IV SCH (16:30)
--- NOTE | 2020-06-30 16:53 | PCM.PN ---
- General Info Date of Service: 06/30/20 Subjective Update: Resting in bed with . Reports headache 10/01, was previously 610 in severity at [facility]. Denies visual changes, shortness of air, chest pain, nausea/vomiting or RUQ pain. - Patient Data Vitals - Most Recent: Last Vital Signs Temp 98.3 F 06/30/20 15:29 Pulse 76 06/30/20 15:29 Resp 16 06/30/20 15:29 BP 164/96 H 06/30/20 15:29 Pulse Ox 99 06/30/20 15:29 Weight - Most Recent: 149 lb 14.4 oz Med Orders - Current: Current Medications Calcium Gluconate (Calcium Gluconate 10% 1 Gm/10 Ml Sdv) 1 gm IV ASDIRECTED PRN PRN Reason: respiratory distress Magnesium Sulfate (Magnesium Sulfate In Water 20 Gm/500 Ml) 20 gm in 500 mls @ 50 mls/hr IV ASDIRECTED JUSTYN Lactated Ringer's (Ringers, Lactated) 1,000 mls @ 50 mls/hr IV ASDIRECTED JUSTYN Sodium Chloride (Sodium Chloride 0.9% 10 Ml Syringe) 10 ml FLUSH ASDIRECTED PRN PRN Reason: Keep Vein Open Sodium Chloride (Sodium Chloride 0.9% 2.5 Ml Syringe) 2.5 ml FLUSH ASDIRECTED PRN PRN Reason: Keep Vein Open Sodium Chloride (Sodium Chloride 0.9% 10 Ml Sdv) 10 ml IV ASDIRECTED PRN PRN Reason: IV Use Discontinued Medications Magnesium Sulfate 4 gm/ Premix 100 mls @ 300 mls/hr IV BOLUS ONE Stop: 06/30/20 15:32 Nifedipine (Nifedipine 30 Mg Tab.Er) 60 mg PO DAILY ONE Stop: 06/30/20 15:51 - Exam General: Alert Lungs: Clear to Auscultation, Normal Respiratory Effort Cardiovascular: Regular Rate, Regular Rhythm GI/Abdominal Exam: Soft, Non-Tender Back Exam: Normal Inspection, Full Range of Motion Extremities: Normal Inspection, Normal Range of Motion, Non-Tender, No Pedal Edema Skin: Warm, Dry, Intact Neurological: No New Focal Deficit Psy/Mental Status: Normal Mood Sepsis Event Note - Focused Exam Vital Signs: Vital Signs Temp Pulse Resp BP Pulse Ox 06/30/20 15:29 98.3 F 76 16 164/96 H 99 - Problem List Review Problem List Initiated/Reviewed/Updated: Yes - My Orders Last 24 Hours: My Active Orders 06/30/20 TYPE AND SCREEN [BBK] Routine 06/30/20 15:13 Patient Status [ADT] Routine Bedrest [RC] ASDIRECTED Communication Order [RC] PRN Communication Order [RC] PRN Height and Weight [RC] DAILY Intake and Output [RC] QSHIFT Notify Provider [RC] PRN Oxygen Therapy [RC] PRN Vital Signs [RC] ASDIRECTED Calcium Gluconate 1 gm IV ASDIRECTED PRN Sodium Chloride 0.9% [Normal Saline] 10 ml IV ASDIRECTED PRN Sodium Chloride 0.9% [Saline Flush] 10 ml FLUSH ASDIRECTED PRN Sodium Chloride 0.9% [Saline Flush] 2.5 ml FLUSH ASDIRECTED PRN Electronic Heart Tones Ext w TOCO [WOMSER] Per Unit Routine Peripheral IV Insertion Adult [OM.PC] Routine 06/30/20 15:14 Equipment to Bedside [RC] PRN Heart Tones [RC] ASDIRECTED 06/30/20 15:15 Notify Provider Status Change [RC] ASDIRECTED Magnesium Sulfate/Water [Magnesium Sulfate in Water 20 GM/500 ML] 20 gm in 500 ml IV ASDIRECTED Deep Tendon Reflexes [WOMSER] Q1H 06/30/20 15:29 CORONAVIRUS COVID-19 ALINE [MOLEC] Routine 06/30/20 16:15 Deep Tendon Reflexes [WOMSER] Q1H 06/30/20 16:30 Lactated Ringers [Ringers, Lactated] 1,000 ml IV ASDIRECTED 06/30/20 17:15 Deep Tendon Reflexes [WOMSER] Q1H 06/30/20 18:15 Deep Tendon Reflexes [WOMSER] Q1H 06/30/20 19:15 Deep Tendon Reflexes [WOMSER] Q1H 06/30/20 20:15 Deep Tendon Reflexes [WOMSER] Q1H 06/30/20 21:15 Deep Tendon Reflexes [WOMSER] Q1H 06/30/20 22:15 Deep Tendon Reflexes [WOMSER] Q1H 06/30/20 23:15 Deep Tendon Reflexes [WOMSER] Q1H 07/01/20 00:15 Deep Tendon Reflexes [WOMSER] Q1H 07/01/20 01:15 Deep Tendon Reflexes [WOMSER] Q1H 07/01/20 02:15 Deep Tendon Reflexes [WOMSER] Q1H 07/01/20 03:15 Deep Tendon Reflexes [WOMSER] Q1H 07/01/20 04:15 Deep Tendon Reflexes [WOMSER] Q1H 07/01/20 05:15 Deep Tendon Reflexes [WOMSER] Q1H 07/01/20 06:15 Deep Tendon Reflexes [WOMSER] Q1H 07/01/20 07:15 Deep Tendon Reflexes [WOMSER] Q1H 07/01/20 08:15 Deep Tendon Reflexes [WOMSER] Q1H 07/01/20 09:15 Deep Tendon Reflexes [WOMSER] Q1H 07/01/20 10:15 Deep Tendon Reflexes [WOMSER] Q1H 07/01/20 11:15 Deep Tendon Reflexes [WOMSER] Q1H 07/01/20 12:15 Deep Tendon Reflexes [WOMSER] Q1H 07/01/20 13:15 Deep Tendon Reflexes [WOMSER] Q1H 07/01/20 14:15 Deep Tendon Reflexes [WOMSER] Q1H - Assessment Assessment:: 35 year old s/p on 06/22/2020 with severe preeclampsia - Plan Plan:: Preeclampsia with severe features * Diagnosed with severe range blood pressures and headache * Preeclampsia labs obtained at clinic today within normal limits * Admitted to L&D for magnesium for seizure prophylaxis * Valle catheter ordered for strict monitoring of intake and output * PO Procardia 60mg given at 1630 * IV Hydralazine to Labetalol protocol as needed * PO Tylenol and Ibuprofen ordered for headache/abdominal pain PRN * Will repeat preeclampsia labs in the morning
[2020-06-30] MEDS: Magnesium Sulfate/Water 20 GM/500 ML BAG IV SCH (17:12)
[2020-06-30] MEDS ORDERED: Ibuprofen 800 MG Tab PO PRN (17:37)
[2020-06-30] MEDS: Ibuprofen 600 MG Tab PO PRN (17:54)
[2020-06-30] MEDS: Acetaminophen 500 MG Tab PO PRN (19:43)
[2020-07-01] MEDS: Magnesium Sulfate/Water 20 GM/500 ML BAG IV SCH (03:22)
[2020-07-01 03:46] LABS: BLOOD UREA NITROGEN,BUN 6 mg/dL (7.0-18.0); CARBON DIOXIDE,CO2 27.2 mmol/L (21.0-32.0); CHLORIDE,CL 105 mmol/L (98-107); GLUCOSE RANDOM 97 mg/dL (74-106); SODIUM,NA 141 mmol/L (136-145)
[2020-07-01] MEDS: Ibuprofen 600 MG Tab PO PRN ×2 (06:07→15:23)
[2020-07-01] MEDS: Acetaminophen 500 MG Tab PO PRN ×2 (07:21→22:04)
--- NOTE | 2020-07-01 07:51 | PCM.PN ---
- General Info Date of Service: 07/01/20 Subjective Update: Resting in bed with infant. Reports headache resolved with Tylenol and Ibuprofen overnight. Denies visual changes, shortness of air, chest pain, nausea/vomiting or RUQ pain. - Patient Data Vitals - Most Recent: Last Vital Signs Temp 97 F 07/01/20 07:00 Pulse 83 07/01/20 07:00 Resp 18 07/01/20 07:00 BP 133/91 H 07/01/20 07:00 Pulse Ox 95 07/01/20 07:00 Weight - Most Recent: 149 lb 14.4 oz I&O - Last 24 Hours: Intake & Output 06/30/20 07/01/20 07/01/20 22:59 06:59 14:59 Intake Total 525 Output Total 350 2250 Balance -350 -1725 Lab Results Last 24 Hours: Laboratory Results - last 24 hr 06/30/20 06/30/20 06/30/20 Range/Units 15:29 16:36 21:12 WBC (4.0-11.0) K/uL RBC (4.30-5.90) M/uL Hgb (12.0-16.0) g/dL Hct (36.0-46.0) % MCV (80.0-98.0) fL MCH (27.0-32.0) pg MCHC (31.0-37.0) g/dL RDW Std Deviation (28.0-62.0) fl RDW Coeff of Anuj (11.0-15.0) % Plt Count (150-400) K/uL MPV (7.40-12.00) fL Nucleated RBC % /100WBC Nucleated RBCs # K/uL Sodium (136-145) mmol/L Potassium (3.5-5.1) mmol/L Chloride (98-107) mmol/L Carbon Dioxide (21.0-32.0) mmol/L BUN (7.0-18.0) mg/dL Creatinine (0.6-1.0) mg/dL Est Cr Clr Drug Dosing mL/min Estimated GFR (MDRD) ml/min Glucose (74-106) mg/dL Calcium (8.5-10.1) mg/dL Magnesium 5.8 H (1.8-2.4) mg/dL Total Bilirubin (0.2-1.0) mg/dL AST (15-37) IU/L ALT (14-63) IU/L Alkaline Phosphatase (46-116) U/L Total Protein (6.4-8.2) g/dL Albumin (3.4-5.0) g/dL Globulin (2.6-4.0) g/dL Albumin/Globulin Ratio (0.9-1.6) SARS-CoV-2 RNA (ALINE) NEGATIVE (NEGATIVE) Blood Type O POSITIVE Antibody Screen NEGATIVE 07/01/20 07/01/20 07/01/20 Range/Units 03:15 03:15 03:15 WBC 7.86 (4.0-11.0) K/uL RBC 3.90 L (4.30-5.90) M/uL Hgb 11.8 L (12.0-16.0) g/dL Hct 35.6 L (36.0-46.0) % MCV 91.3 (80.0-98.0) fL MCH 30.3 (27.0-32.0) pg MCHC 33.1 (31.0-37.0) g/dL RDW Std Deviation 47.9 (28.0-62.0) fl RDW Coeff of Anuj 14 (11.0-15.0) % Plt Count 460 H (150-400) K/uL MPV 9.50 (7.40-12.00) fL Nucleated RBC % 0.0 /100WBC Nucleated RBCs # 0 K/uL Sodium 141 (136-145) mmol/L Potassium 3.0 L (3.5-5.1) mmol/L Chloride 105 (98-107) mmol/L Carbon Dioxide 27.2 (21.0-32.0) mmol/L BUN 6 L (7.0-18.0) mg/dL Creatinine 0.8 (0.6-1.0) mg/dL Est Cr Clr Drug Dosing 81.97 mL/min Estimated GFR (MDRD) > 60.0 ml/min Glucose 97 (74-106) mg/dL Calcium 6.1 L (8.5-10.1) mg/dL Magnesium 7.4 H (1.8-2.4) mg/dL Total Bilirubin 0.3 (0.2-1.0) mg/dL AST 14 L (15-37) IU/L ALT 35 (14-63) IU/L Alkaline Phosphatase 109 (46-116) U/L Total Protein 6.8 (6.4-8.2) g/dL Albumin 2.8 L (3.4-5.0) g/dL Globulin 4.0 (2.6-4.0) g/dL Albumin/Globulin Ratio 0.7 L (0.9-1.6) SARS-CoV-2 RNA (ALINE) (NEGATIVE) Blood Type Antibody Screen Med Orders - Current: Current Medications Acetaminophen (Acetaminophen 500 Mg Tab) 1,000 mg PO Q6H PRN PRN Reason: Headache Last Admin: 07/01/20 07:21 Dose: 1,000 mg Documented by: Calcium Gluconate (Calcium Gluconate 10% 1 Gm/10 Ml Sdv) 1 gm IV ASDIRECTED PRN PRN Reason: respiratory distress Magnesium Sulfate (Magnesium Sulfate In Water 20 Gm/500 Ml) 20 gm in 500 mls @ 25 mls/hr IV ASDIRECTED JUSTYN Last Infusion: 07/01/20 03:50 Dose: 1 gm/hr, 25 mls/hr Documented by: Lactated Ringer's (Ringers, Lactated) 1,000 mls @ 50 mls/hr IV ASDIRECTED JUSTYN Last Admin: 06/30/20 16:25 Dose: 3 mls/hr Documented by: Ibuprofen (Ibuprofen 600 Mg Tab) 600 mg PO Q8H PRN PRN Reason: Headache Last Admin: 07/01/20 06:07 Dose: 600 mg Documented by: Sodium Chloride (Sodium Chloride 0.9% 10 Ml Syringe) 10 ml FLUSH ASDIRECTED PRN PRN Reason: Keep Vein Open Sodium Chloride (Sodium Chloride 0.9% 2.5 Ml Syringe) 2.5 ml FLUSH ASDIRECTED PRN PRN Reason: Keep Vein Open Sodium Chloride (Sodium Chloride 0.9% 10 Ml Sdv) 10 ml IV ASDIRECTED PRN PRN Reason: IV Use Discontinued Medications Magnesium Sulfate 4 gm/ Premix 100 mls @ 300 mls/hr IV BOLUS ONE Stop: 06/30/20 15:32 Last Admin: 06/30/20 16:39 Dose: 300 mls/hr Documented by: Ibuprofen (Ibuprofen 800 Mg Tab) 600 mg PO Q8H PRN PRN Reason: Headache Nifedipine (Nifedipine 30 Mg Tab.Er) 60 mg PO DAILY ONE Stop: 06/30/20 15:51 Last Admin: 06/30/20 16:30 Dose: 60 mg Documented by: - Exam General: Alert Lungs: Clear to Auscultation, Normal Respiratory Effort Cardiovascular: Regular Rate, Regular Rhythm GI/Abdominal Exam: Soft, Non-Tender, No Distention Back Exam: Normal Inspection, Full Range of Motion Extremities: Normal Inspection, Normal Range of Motion, Non-Tender, No Pedal Edema Skin: Warm, Dry, Intact Neurological: No New Focal Deficit Psy/Mental Status: Normal Mood - Patient Data Lab Results Last 24 hrs: Laboratory Results - last 24 hr 06/30/20 06/30/20 06/30/20 Range/Units 15:29 16:36 21:12 WBC (4.0-11.0) K/uL RBC (4.30-5.90) M/uL Hgb (12.0-16.0) g/dL Hct (36.0-46.0) % MCV (80.0-98.0) fL MCH (27.0-32.0) pg MCHC (31.0-37.0) g/dL RDW Std Deviation (28.0-62.0) fl RDW Coeff of Anuj (11.0-15.0) % Plt Count (150-400) K/uL MPV (7.40-12.00) fL Nucleated RBC % /100WBC Nucleated RBCs # K/uL Sodium (136-145) mmol/L Potassium (3.5-5.1) mmol/L Chloride (98-107) mmol/L Carbon Dioxide (21.0-32.0) mmol/L BUN (7.0-18.0) mg/dL Creatinine (0.6-1.0) mg/dL Est Cr Clr Drug Dosing mL/min Estimated GFR (MDRD) ml/min Glucose (74-106) mg/dL Calcium (8.5-10.1) mg/dL Magnesium 5.8 H (1.8-2.4) mg/dL Total Bilirubin (0.2-1.0) mg/dL AST (15-37) IU/L ALT (14-63) IU/L Alkaline Phosphatase (46-116) U/L Total Protein (6.4-8.2) g/dL Albumin (3.4-5.0) g/dL Globulin (2.6-4.0) g/dL Albumin/Globulin Ratio (0.9-1.6) SARS-CoV-2 RNA (ALINE) NEGATIVE (NEGATIVE) Blood Type O POSITIVE Antibody Screen NEGATIVE 07/01/20 07/01/20 07/01/20 Range/Units 03:15 03:15 03:15 WBC 7.86 (4.0-11.0) K/uL RBC 3.90 L (4.30-5.90) M/uL Hgb 11.8 L (12.0-16.0) g/dL Hct 35.6 L (36.0-46.0) % MCV 91.3 (80.0-98.0) fL MCH 30.3 (27.0-32.0) pg MCHC 33.1 (31.0-37.0) g/dL RDW Std Deviation 47.9 (28.0-62.0) fl RDW Coeff of Anuj 14 (11.0-15.0) % Plt Count 460 H (150-400) K/uL MPV 9.50 (7.40-12.00) fL Nucleated RBC % 0.0 /100WBC Nucleated RBCs # 0 K/uL Sodium 141 (136-145) mmol/L Potassium 3.0 L (3.5-5.1) mmol/L Chloride 105 (98-107) mmol/L Carbon Dioxide 27.2 (21.0-32.0) mmol/L BUN 6 L (7.0-18.0) mg/dL Creatinine 0.8 (0.6-1.0) mg/dL Est Cr Clr Drug Dosing 81.97 mL/min Estimated GFR (MDRD) > 60.0 ml/min Glucose 97 (74-106) mg/dL Calcium 6.1 L (8.5-10.1) mg/dL Magnesium 7.4 H (1.8-2.4) mg/dL Total Bilirubin 0.3 (0.2-1.0) mg/dL AST 14 L (15-37) IU/L ALT 35 (14-63) IU/L Alkaline Phosphatase 109 (46-116) U/L Total Protein 6.8 (6.4-8.2) g/dL Albumin 2.8 L (3.4-5.0) g/dL Globulin 4.0 (2.6-4.0) g/dL Albumin/Globulin Ratio 0.7 L (0.9-1.6) SARS-CoV-2 RNA (ALINE) (NEGATIVE) Blood Type Antibody Screen Result Diagrams: 07/01/20 03:15 07/01/20 03:15 Sepsis Event Note - Evaluation Sepsis Screening Result: No Definite Risk - Focused Exam Vital Signs: Vital Signs Temp Pulse Resp BP Pulse Ox 07/01/20 07:00 97 F 83 18 133/91 H 95 07/01/20 03:50 97.0 F 84 18 120/83 97 06/30/20 23:45 96.9 F 80 19 111/75 93 L 06/30/20 20:00 99.7 F 89 17 133/73 95 - Problem List Review Problem List Initiated/Reviewed/Updated: Yes - My Orders Last 24 Hours: My Active Orders 06/30/20 15:13 Patient Status [ADT] Routine Bedrest [RC] ASDIRECTED Communication Order [RC] PRN Communication Order [RC] PRN Height and Weight [RC] DAILY Intake and Output [RC] QSHIFT Notify Provider [RC] PRN Oxygen Therapy [RC] PRN Vital Signs [RC] ASDIRECTED Calcium Gluconate 1 gm IV ASDIRECTED PRN Sodium Chloride 0.9% [Normal Saline] 10 ml IV ASDIRECTED PRN Sodium Chloride 0.9% [Saline Flush] 10 ml FLUSH ASDIRECTED PRN Sodium Chloride 0.9% [Saline Flush] 2.5 ml FLUSH ASDIRECTED PRN Electronic Heart Tones Ext w TOCO [WOMSER] Per Unit Routine Peripheral IV Insertion Adult [OM.PC] Routine 06/30/20 15:14 Equipment to Bedside [RC] PRN 06/30/20 15:15 Notify Provider Status Change [RC] ASDIRECTED Magnesium Sulfate/Water [Magnesium Sulfate in Water 20 GM/500 ML] 20 gm in 500 ml IV ASDIRECTED Deep Tendon Reflexes [WOMSER] Q1H 06/30/20 16:15 Deep Tendon Reflexes [WOMSER] Q1H 06/30/20 16:30 Lactated Ringers [Ringers, Lactated] 1,000 ml IV ASDIRECTED 06/30/20 16:47 Antiembolic Devices [RC] .Routine 06/30/20 17:15 Deep Tendon Reflexes [WOMSER] Q1H 06/30/20 17:37 Acetaminophen [Tylenol Extra Strength] 1,000 mg PO Q6H PRN 06/30/20 17:50 Ibuprofen [Motrin] 600 mg PO Q8H PRN 06/30/20 18:15 Deep Tendon Reflexes [WOMSER] Q1H 06/30/20 19:15 Deep Tendon Reflexes [WOMSER] Q1H 06/30/20 20:15 Deep Tendon Reflexes [WOMSER] Q1H 06/30/20 21:15 Deep Tendon Reflexes [WOMSER] Q1H 06/30/20 22:15 Deep Tendon Reflexes [WOMSER] Q1H 06/30/20 23:15 Deep Tendon Reflexes [WOMSER] Q1H 07/01/20 00:15 Deep Tendon Reflexes [WOMSER] Q1 07/01/20 01:15 Deep Tendon Reflexes [WOMSER] Q1 07/01/20 02:15 Deep Tendon Reflexes [WOMSER] Q1H 07/01/20 03:15 Deep Tendon Reflexes [WOMSER] Q1H 07/01/20 04:15 Deep Tendon Reflexes [WOMSER] Q1 07/01/20 05:15 Deep Tendon Reflexes [WOMSER] Q1H 07/01/20 06:15 Deep Tendon Reflexes [WOMSER] Q1H 07/01/20 07:15 Deep Tendon Reflexes [WOMSER] Q1H 07/01/20 08:15 Deep Tendon Reflexes [WOMSER] Q1H 07/01/20 09:10 MAGNESIUM [CHEM] Q6H 07/01/20 09:15 Deep Tendon Reflexes [WOMSER] Q1H 07/01/20 10:15 Deep Tendon Reflexes [WOMSER] Q1H 07/01/20 11:15 Deep Tendon Reflexes [WOMSER] Q1H 07/01/20 12:15 Deep Tendon Reflexes [WOMSER] Q1H 07/01/20 13:15 Deep Tendon Reflexes [WOMSER] Q1H 07/01/20 14:15 Deep Tendon Reflexes [WOMSER] Q1H 07/01/20 15:10 MAGNESIUM [CHEM] Q6H - Assessment Assessment:: 35 year old s/p on 06/22/2020 with preeclampsia with severe features - Plan Plan:: Preeclampsia with severe features * Diagnosed with severe range blood pressures and headache * Preeclampsia labs obtained at clinic yesterday within normal limits, repeat within normal limits today * Admitted to L&D for magnesium for seizure prophylaxis x24hrs * Valle catheter ordered for strict monitoring of intake and output * PO Procardia 60mg given at 1630 yesterday - Blood pressure normotensive to mild range following medication administration * IV Hydralazine to Labetalol protocol as needed * PO Tylenol and Ibuprofen ordered for headache/abdominal pain PRN Dispo: stable. Reviewed patient's case with Dr. Gabriel ([facility]) who is in agreement with management as above. Recommends monitoring patient an additional 24hrs following magnesium discontinuation to observe blood pressure and symptoms along with blood pressure check in clinic early next week. Continue cares today.
[2020-07-01] MEDS: Labetalol 100 MG Tab PO SCH (17:28)
[2020-07-01 21:26] LABS: BLOOD UREA NITROGEN,BUN 11 mg/dL (7.0-18.0); CARBON DIOXIDE,CO2 26.4 mmol/L (21.0-32.0); CHLORIDE,CL 103 mmol/L (98-107); GLUCOSE RANDOM 105 mg/dL (74-106); POTASSIUM,K 3.2 mmol/L (3.5-5.1); SODIUM,NA 139 mmol/L (136-145)
--- NOTE | 2020-07-01 22:45 | HP ---
DATE OF : 1985 PRIMARY CARE PHYSICIAN: Meera Prieto MD CHIEF COMPLAINT: Preeclampsia. SUBJECTIVE: This is a 35-year-old female. She is one-week with preeclampsia. She presented with a headache and elevated blood pressure. She is currently on magnesium 1 g, just decreased to 0.5 g as her magnesium level was 7.1. She states that she feels foggy, however, denies shortness of breath, chest pain, or dyspnea. She also reports that her headache is all gone. However, she does feel foggy with some blurred vision. OBJECTIVE: VITAL SIGNS: Blood pressure systolic ranged from 121 to 136 over diastolic of 73 to 94, pulse is 88, respiratory rate of 17, and O2 saturation 95%. Her urine output has varied from 20 mL/h through the day to 100 mL/h only over a 2-hour time period. The remainder are all 50 or less. NEUROLOGIC: Deep tendon reflexes are 1+ equal bilaterally. GENERAL: She is alert and oriented. No acute distress. NECK: Supple. LUNGS: Clear. CARDIOVASCULAR: Regular rate without murmur. ABDOMEN: Soft and nontender. EXTREMITIES: Show trace to 1+ edema bilaterally. ASSESSMENT: preeclampsia with marginal urine output and persistently elevated blood pressures. Magnesium level of 7.1. PLAN: To decrease magnesium to 0.5 g/hour. May have p.o. intake as needed. Continue with accurate I's and O's. Recheck BMP, CBC, and uric acid. Assess for possible discontinuing magnesium in the morning. KATHI ARAIZA /[id number] MTDD
[2020-07-02] MEDS: Labetalol 100 MG Tab PO SCH ×2 (01:05→08:01)
[2020-07-02] MEDS: Magnesium Sulfate/Water 20 GM/500 ML BAG IV SCH (05:19)
--- NOTE | 2020-07-02 09:47 | PCM.PN ---
- General Info Date of Service: 07/02/20 Admission Dx/Problem (Free Text): "brain fog is better" headache is resolved. She denies pain, shortness of breath or other symptoms at this time. - Review of Systems General: Reports: No Symptoms HEENT: Reports: No Symptoms Pulmonary: Reports: No Symptoms Cardiovascular: Reports: No Symptoms Gastrointestinal: Reports: No Symptoms Genitourinary: Reports: No Symptoms Musculoskeletal: Reports: No Symptoms Skin: Reports: No Symptoms Neurological: Reports: No Symptoms - Patient Data Vitals - Most Recent: Last Vital Signs Temp 36.6 C 07/02/20 06:55 Pulse 78 07/02/20 08:01 Resp 18 07/02/20 06:55 BP 118/97 H 07/02/20 08:01 Pulse Ox 92 L 07/02/20 06:55 Weight - Most Recent: 65.771 kg I&O - Last 24 Hours: Intake & Output 07/01/20 07/02/20 07/02/20 22:59 06:59 14:59 Intake Total 1950 800 Output Total 976 979 Balance 974 -179 Lab Results Last 24 Hours: Laboratory Results - last 24 hr 07/01/20 07/01/20 07/01/20 Range/Units 09:09 15:15 20:58 WBC (4.0-11.0) K/uL RBC (4.30-5.90) M/uL Hgb (12.0-16.0) g/dL Hct (36.0-46.0) % MCV (80.0-98.0) fL MCH (27.0-32.0) pg MCHC (31.0-37.0) g/dL RDW Std Deviation (28.0-62.0) fl RDW Coeff of Anuj (11.0-15.0) % Plt Count (150-400) K/uL MPV (7.40-12.00) fL Nucleated RBC % /100WBC Nucleated RBCs # K/uL Sodium 139 (136-145) mmol/L Potassium 3.2 L (3.5-5.1) mmol/L Chloride 103 (98-107) mmol/L Carbon Dioxide 26.4 (21.0-32.0) mmol/L BUN 11 (7.0-18.0) mg/dL Creatinine 0.9 (0.6-1.0) mg/dL Est Cr Clr Drug Dosing 72.86 mL/min Estimated GFR (MDRD) > 60.0 ml/min Glucose 105 (74-106) mg/dL Uric Acid 5.8 (2.6-7.2) mg/dL Calcium 6.2 L (8.5-10.1) mg/dL Magnesium 7.0 H 7.1 H 5.5 H (1.8-2.4) mg/dL Total Bilirubin 0.2 (0.2-1.0) mg/dL AST 12 L (15-37) IU/L ALT 29 (14-63) IU/L Alkaline Phosphatase 125 H (46-116) U/L Total Protein 6.8 (6.4-8.2) g/dL Albumin 2.7 L (3.4-5.0) g/dL Globulin 4.1 H (2.6-4.0) g/dL Albumin/Globulin Ratio 0.7 L (0.9-1.6) 07/01/20 07/02/20 Range/Units 20:58 03:05 WBC 8.92 (4.0-11.0) K/uL RBC 4.15 L (4.30-5.90) M/uL Hgb 12.4 (12.0-16.0) g/dL Hct 38.2 (36.0-46.0) % MCV 92.0 (80.0-98.0) fL MCH 29.9 (27.0-32.0) pg MCHC 32.5 (31.0-37.0) g/dL RDW Std Deviation 49.4 (28.0-62.0) fl RDW Coeff of Anuj 15 (11.0-15.0) % Plt Count 501 H (150-400) K/uL MPV 9.30 (7.40-12.00) fL Nucleated RBC % 0.0 /100WBC Nucleated RBCs # 0 K/uL Sodium (136-145) mmol/L Potassium (3.5-5.1) mmol/L Chloride (98-107) mmol/L Carbon Dioxide (21.0-32.0) mmol/L BUN (7.0-18.0) mg/dL Creatinine (0.6-1.0) mg/dL Est Cr Clr Drug Dosing mL/min Estimated GFR (MDRD) ml/min Glucose (74-106) mg/dL Uric Acid (2.6-7.2) mg/dL Calcium (8.5-10.1) mg/dL Magnesium 4.9 H (1.8-2.4) mg/dL Total Bilirubin (0.2-1.0) mg/dL AST (15-37) IU/L ALT (14-63) IU/L Alkaline Phosphatase (46-116) U/L Total Protein (6.4-8.2) g/dL Albumin (3.4-5.0) g/dL Globulin (2.6-4.0) g/dL Albumin/Globulin Ratio (0.9-1.6) Med Orders - Current: Current Medications Acetaminophen (Acetaminophen 500 Mg Tab) 1,000 mg PO Q6H PRN PRN Reason: Headache Last Admin: 07/01/20 22:04 Dose: 1,000 mg Documented by: Lactated Ringer's (Ringers, Lactated) 1,000 mls @ 50 mls/hr IV ASDIRECTED [facility] Last Admin: 06/30/20 16:25 Dose: 3 mls/hr Documented by: Ibuprofen (Ibuprofen 600 Mg Tab) 600 mg PO Q8H PRN PRN Reason: Headache Last Admin: 07/01/20 15:23 Dose: 600 mg Documented by: Labetalol HCl (Labetalol 100 Mg Tab) 200 mg PO BID [facility] Last Admin: 07/02/20 08:01 Dose: 200 mg Documented by: Sodium Chloride (Sodium Chloride 0.9% 10 Ml Syringe) 10 ml FLUSH ASDIRECTED PRN PRN Reason: Keep Vein Open Sodium Chloride (Sodium Chloride 0.9% 2.5 Ml Syringe) 2.5 ml FLUSH ASDIRECTED PRN PRN Reason: Keep Vein Open Sodium Chloride (Sodium Chloride 0.9% 10 Ml Sdv) 10 ml IV ASDIRECTED PRN PRN Reason: IV Use Discontinued Medications Calcium Gluconate (Calcium Gluconate 10% 1 Gm/10 Ml Sdv) 1 gm IV ASDIRECTED PRN PRN Reason: respiratory distress Magnesium Sulfate 4 gm/ Premix 100 mls @ 300 mls/hr IV BOLUS ONE Stop: 06/30/20 15:32 Last Admin: 06/30/20 16:39 Dose: 300 mls/hr Documented by: Magnesium Sulfate (Magnesium Sulfate In Water 20 Gm/500 Ml) 20 gm in 500 mls @ 25 mls/hr IV ASDIRECTED [facility] Last Admin: 07/02/20 05:19 Dose: 0.5 gm/hr, 12.5 mls/hr Documented by: Ibuprofen (Ibuprofen 800 Mg Tab) 600 mg PO Q8H PRN PRN Reason: Headache Nifedipine (Nifedipine 30 Mg Tab.Er) 60 mg PO DAILY ONE Stop: 06/30/20 15:51 Last Admin: 06/30/20 16:30 Dose: 60 mg Documented by: - Exam General: Alert, Oriented HEENT: Mucous Membr. Moist/[place] Neck: Supple Lungs: Normal Respiratory Effort GI/Abdominal Exam: Soft, Non-Tender, No Distention Extremities: Non-Tender, No Pedal Edema Skin: Warm, Dry, Intact Neurological: No New Focal Deficit Psy/Mental Status: Alert, Normal Affect, Normal Mood - Patient Data Lab Results Last 24 hrs: Laboratory Results - last 24 hr 07/01/20 07/01/20 07/01/20 Range/Units 09:09 15:15 20:58 WBC (4.0-11.0) K/uL RBC (4.30-5.90) M/uL Hgb (12.0-16.0) g/dL Hct (36.0-46.0) % MCV (80.0-98.0) fL MCH (27.0-32.0) pg MCHC (31.0-37.0) g/dL RDW Std Deviation (28.0-62.0) fl RDW Coeff of Anuj (11.0-15.0) % Plt Count (150-400) K/uL MPV (7.40-12.00) fL Nucleated RBC % /100WBC Nucleated RBCs # K/uL Sodium 139 (136-145) mmol/L Potassium 3.2 L (3.5-5.1) mmol/L Chloride 103 (98-107) mmol/L Carbon Dioxide 26.4 (21.0-32.0) mmol/L BUN 11 (7.0-18.0) mg/dL Creatinine 0.9 (0.6-1.0) mg/dL Est Cr Clr Drug Dosing 72.86 mL/min Estimated GFR (MDRD) > 60.0 ml/min Glucose 105 (74-106) mg/dL Uric Acid 5.8 (2.6-7.2) mg/dL Calcium 6.2 L (8.5-10.1) mg/dL Magnesium 7.0 H 7.1 H 5.5 H (1.8-2.4) mg/dL Total Bilirubin 0.2 (0.2-1.0) mg/dL AST 12 L (15-37) IU/L ALT 29 (14-63) IU/L Alkaline Phosphatase 125 H (46-116) U/L Total Protein 6.8 (6.4-8.2) g/dL Albumin 2.7 L (3.4-5.0) g/dL Globulin 4.1 H (2.6-4.0) g/dL Albumin/Globulin Ratio 0.7 L (0.9-1.6) 07/01/20 07/02/20 Range/Units 20:58 03:05 WBC 8.92 (4.0-11.0) K/uL RBC 4.15 L (4.30-5.90) M/uL Hgb 12.4 (12.0-16.0) g/dL Hct 38.2 (36.0-46.0) % MCV 92.0 (80.0-98.0) fL MCH 29.9 (27.0-32.0) pg MCHC 32.5 (31.0-37.0) g/dL RDW Std Deviation 49.4 (28.0-62.0) fl RDW Coeff of Anuj 15 (11.0-15.0) % Plt Count 501 H (150-400) K/uL MPV 9.30 (7.40-12.00) fL Nucleated RBC % 0.0 /100WBC Nucleated RBCs # 0 K/uL Sodium (136-145) mmol/L Potassium (3.5-5.1) mmol/L Chloride (98-107) mmol/L Carbon Dioxide (21.0-32.0) mmol/L BUN (7.0-18.0) mg/dL Creatinine (0.6-1.0) mg/dL Est Cr Clr Drug Dosing mL/min Estimated GFR (MDRD) ml/min Glucose (74-106) mg/dL Uric Acid (2.6-7.2) mg/dL Calcium (8.5-10.1) mg/dL Magnesium 4.9 H (1.8-2.4) mg/dL Total Bilirubin (0.2-1.0) mg/dL AST (15-37) IU/L ALT (14-63) IU/L Alkaline Phosphatase (46-116) U/L Total Protein (6.4-8.2) g/dL Albumin (3.4-5.0) g/dL Globulin (2.6-4.0) g/dL Albumin/Globulin Ratio (0.9-1.6) Result Diagrams: 07/01/20 20:58 07/01/20 20:58 Sepsis Event Note - Evaluation Sepsis Screening Result: No Definite Risk - Focused Exam Vital Signs: Vital Signs Temp Pulse Pulse Resp BP BP Pulse Ox 07/02/20 08:01 78 118/97 H 07/02/20 06:55 36.6 C 68 18 113/71 92 L 07/02/20 06:05 36.7 C 70 20 110/74 91 L 07/02/20 05:10 36.9 C 83 18 116/81 93 L 07/02/20 04:00 36.8 C 73 15 116/67 93 L 07/02/20 03:00 36.9 C 74 15 111/67 94 L 07/02/20 02:00 36.7 C 71 17 118/60 95 07/02/20 01:05 77 110/76 07/02/20 01:00 37.0 C 77 16 110/76 96 07/02/20 00:04 37.0 C 82 16 119/78 93 L 07/01/20 22:55 37.0 C 81 17 141/91 H 94 L 07/01/20 22:10 37.1 C 82 16 145/88 H 96 - Problem List & Annotations (1) Pre-eclampsia affecting puerperium SNOMED Code(s): 140642117, 042015769, 026473953 Code(s): O14.95 - UNSPECIFIED PRE-ECLAMPSIA, COMPLICATING THE PUERPERIUM Status: Acute Current Visit: Yes - Problem List Review Problem List Initiated/Reviewed/Updated: Yes - My Orders Last 24 Hours: My Active Orders 07/01/20 17:30 Labetalol [Normodyne] 200 mg PO BID - Assessment Assessment:: 35 year old s/p on 06/22/2020 with preeclampsia with severe features Neurologic symptoms resolved, good diuresis BP normal on labetalol Hypokalemia - Plan Plan:: Discontinue magnesium today Remove johnson, but continue accurate I/O Continue oral labetalol Replace potassium orally Monitor BP today with increased activity, if stable, dismiss this evening.
[2020-07-02] MEDS ORDERED: Potassium Chloride 20 MEQ Tab.ER PO ONE (10:30)
[2020-07-02 16:51] LABS: BLOOD UREA NITROGEN,BUN 12 mg/dL (7.0-18.0); CARBON DIOXIDE,CO2 25.1 mmol/L (21.0-32.0); CHLORIDE,CL 105 mmol/L (98-107); GLUCOSE RANDOM 95 mg/dL (74-106); POTASSIUM,K 3.4 mmol/L (3.5-5.1); SODIUM,NA 139 mmol/L (136-145)
== END 2020-07-02 18:35 | disposition home or self-care (01) | DRG 561 ==
LOC: MW.OB 14:52 → OBSVTOIN 15:13
PROVIDERS: ADMIT Obstetrics & Gynecology; ATTEND Obstetrics & Gynecology
DX: O14.15 Severe pre-eclampsia, complicating the puerperium (principal); O99.893 Other specified diseases and conditions complicating puerperium; E87.6 Hypokalemia; Z20.822 Contact with and (suspected) exposure to COVID-19
CPT/HCPCS: 36415; 51702; 80048; 80053; 83735; 84550; 85027; 86850; 86900; 86901; A9270-GY; J3475; J7120; U0002